=== PATIENT | female | born 1945 | race Hispanic/Latino ===

== ENCOUNTER 2018-12-04 08:32 | Outpatient (CLI) | payer MEDICARE, BC | END 2018-12-04 08:33 | disposition home or self-care (01) | LOC: RAD 08:32 | DX: Z12.31 Encounter for screening mammogram for malignant neoplasm of breast (principal) ==

== ENCOUNTER 2018-12-13 10:03 | Outpatient (CLI) | payer MEDICARE, BC | END 2018-12-13 10:04 | disposition home or self-care (01) | LOC: RAD 10:03 ==